=== PATIENT | female | born 1945 | race Caucasian/White ===

== ENCOUNTER 2020-12-13 13:48 | Inpatient (IN) | payer MEDICARE, BC ==
[~2020-12-13] VITALS: Ht 157.5 cm; Wt 68.2 kg
[2020-12-16 08:27] VITALS: BP 134/81
== END 2020-12-16 12:44 | disposition home or self-care (01) | DRG 309 ==
LOC: ED 15:57 → EDIP 19:46 → 5SO 22:41
PROVIDERS: ADMIT Emergency Medicine; ATTEND Hospitalist
PROC: 5A2204Z Restoration of Cardiac Rhythm, Single (ICD-10-PCS; principal; 2020-12-15)
DX: I48.4 Atypical atrial flutter (principal); D68.69 Other thrombophilia; I47.1 Supraventricular tachycardia; E87.6 Hypokalemia; E03.9 Hypothyroidism, unspecified; F32.9 Major depressive disorder, single episode, unspecified; Z20.822 Contact with and (suspected) exposure to COVID-19; F41.9 Anxiety disorder, unspecified; I07.1 Rheumatic tricuspid insufficiency; G89.29 Other chronic pain; M54.9 Dorsalgia, unspecified; I48.0 Paroxysmal atrial fibrillation; Z79.01 Long term (current) use of anticoagulants; Z85.3 Personal history of malignant neoplasm of breast; Z87.891 Personal history of nicotine dependence; Z88.0 Allergy status to penicillin; Z82.49 Family history of ischemic heart disease and other diseases of the circulatory system; Z83.3 Family history of diabetes mellitus